=== PATIENT | female | born 1950 | race Caucasian/White ===

== ENCOUNTER 2023-10-27 06:56 | Day surgery (SDC) | payer MEDICARE, BC ==
[2023-10-23 14:43] LABS: MEAN PLATELET VOLUME 8.9 FL (7.4-10.4); MONOCYTES % (AUTO) 7.6 % (2-12); PRE OP HEMOGLOBIN 14.1 g/dL (12.0-16.0)
[2023-10-23 14:44] LABS: BASOPHILS % (AUTO) 0.7 % (0-1); EOSINOPHILS # (AUTO) 0.9 X10'3 (0-0.9); EOSINOPHILS % (AUTO) 11.6 % (0-6); LYMPHOCYTES # (AUTO) 1.9 X10'3 (1.1-4.8); LYMPHOCYTES % (AUTO) 26.3 % (21-51); MEAN CORPUSCULAR HGB CONC 33.1 g/dL (33.0-36.5); MEAN CORPUSCULAR VOLUME 93.9 FL (78-98); MONOCYTES # (AUTO) 0.6 X10'3 (0-0.9); NEUTROPHILS % (AUTO) 53.8 % (42-75); PRE OP HEMATOCRIT 42.7 % (35.0-45.0); PRE OP PLATELET COUNT 266 X10'3 (140-440); PRE OP WHITE BLOOD COUNT 7.4 10'3 (4.8-10.8); RED BLOOD COUNT 4.55 X10'6 (4.20-5.60); RED CELL DISTRIBUTION WIDTH 14.1 % (11.5-14.5)
[2023-10-23 15:16] LABS: ALBUMIN 3.7 G/DL (3.4-5.0); ALKALINE PHOSPHATASE 102 IU/L (46-116); BLOOD UREA NITROGEN 18 MG/DL (7-18); BUN/CREATININE RATIO 17.8 (10.0-20.0); CALCIUM 9.2 MG/DL (8.5-10.1); CHLORIDE 106 MMOL/L (99-107); CREATININE 1.01 MG/DL (0.40-0.90); PRE OP ALT 19 U/L (30-65); PRE OP ANION GAP 9 (8-16); PRE OP AST 16 U/L (10-37); PRE OP BILIRUB, TOTAL 0.4 MG/DL (0.0-1.0); PRE OP GLUCOSE 87 MG/DL (70-104); PRE OP POTASSIUM 4.2 MMOL/L (3.4-5.1); PRE OP SODIUM 142 MMOL/L (135-145); TOTAL CARBON DIOXIDE 26.6 MMOL/L (24-32); TOTAL PROTEIN 7.4 G/DL (6.4-8.2); eGFR 54 ML/MIN
[~2023-10-27] VITALS: Ht 170.2 cm; Wt 91.6 kg
[2023-10-27] VITALS (8 sets, daily range): BP systolic 113–138; BP diastolic 63–79; PULSE 58–61; RESP 10–16; TEMP 97.9; O2SAT 95–99
[2023-10-27] MEDS: cefazolin 2gm/D5W 100mL 100 ML IV ONE (05:30)
[2023-10-27] MEDS: famotidine 20mg tablet PO ONE (05:30)
[~2023-10-27 06:56] MED LIST: APIX5TAB3 PO; CRANBERRY; EVOL140P3 SQ; FLEC150T PO; LEVO100T9 PO; VITAMIN D; ringers solution, lacted 1,000 ML IV SCH
[2023-10-27] MEDS ORDERED: ringers solution, lacted 1,000 ML IV SCH (07:35)
[2023-10-27] MEDS ORDERED: fentaNYL/PF 50MCG/1 ML 2ML syringe IV PRN ×2 (07:35)
[2023-10-27] MEDS ORDERED: proCHLORperazine 10 MG/2 ml inj IV PRN (07:35)
[2023-10-27] MEDS ORDERED: ondansetron/PF 4mg/2ml inj IV PRN (07:35)
[2023-10-27] MEDS ORDERED: fentaNYL/PF 50MCG/1 ML 2ML syringe ONE (09:53)
[2023-10-27] MEDS ORDERED: midazolam 1 mg/ML 2ml injection ONE (09:54)
[2023-10-27] MEDS ORDERED: propofol inj 20 ML IV ONE (09:58)
[2023-10-27] MEDS: BUPIVAcaine/PF 2.5mg/ml (0.25%) 10ml vial ONE (10:11)
[2023-10-27] MEDS: LIDOcaine 2% (20mg/ml) 5ml vial SQ ONE (10:12)
[2023-10-27] MEDS ORDERED: LIDOcaine 2% (20mg/ml) 5ml vial ONE (13:52)
== END 2023-10-27 11:15 | disposition home or self-care (01) ==
LOC: PAS 06:56
PROVIDERS: ATTEND Orthopaedic Surgery Hand Surgery
DX: M65.4 Radial styloid tenosynovitis [de Quervain] (principal); E78.5 Hyperlipidemia, unspecified; I48.91 Unspecified atrial fibrillation; E03.9 Hypothyroidism, unspecified; N18.30 Chronic kidney disease, stage 3 unspecified; E78.00 Pure hypercholesterolemia, unspecified; Z98.890 Other specified postprocedural states; Z79.899 Other long term (current) drug therapy; Z79.01 Long term (current) use of anticoagulants; Z88.8 Allergy status to other drugs, medicaments and biological substances; Z91.040 Latex allergy status; Z91.048 Other nonmedicinal substance allergy status; Z90.49 Acquired absence of other specified parts of digestive tract; Z72.89 Other problems related to lifestyle; Z95.0 Presence of cardiac pacemaker
CPT/HCPCS: 25000; 36415; 80053; 82948; 85025; A6222; J0690; J2250; J2704; J3010; J3490; J7030; J7120; Z7506; Z7512; A4215; A4618; A6449; A7000